=== PATIENT | male | born 1960 | race African-American/Black ===

== ENCOUNTER 2016-11-01 13:51 | Emergency (ER) | payer BC ==
[2016-11-01] MEDS ORDERED: ASPIRIN 81 MG TABLET, CHEWABLE PO ONE (14:17)
--- NOTE | 2016-11-01 14:17 | ER Document Report ---
ED Medical Screen (RME) - General Stated Complaint: SUICIDAL IDEATION Notes: patient experiencing chest pain that started last night previous h/o [place] previous stress test within the past 6-12 months, heart cath in Jul 2015. stents x4 Patient also complaining of suicidal ideations I have greeted and performed a rapid initial assessment of this patient. A comprehensive ED assessment and evaluation of the patient, analysis of test results and completion of the medical decision making process will be conducted by additional ED providers. TRAVEL OUTSIDE OF THE [place] IN LAST 30 DAYS: No - Related Data Allergies/Adverse Reactions: naproxen [Naproxen] Allergy (Mild, Verified 03/29/13 03:31) Hives Past Medical History - Past Medical History Cardiac Medical History: Reports: Hx Coronary Artery Disease, Hx Heart Attack - 2006, Hx Hypercholesterolemia, Hx Hypertension Renal/ Medical History: Reports: Hx Kidney Stones GI Medical History: Reports: Hx Gastroesophageal Reflux Disease, Hx Liver Failure - hepatitis C Psychiatric Medical History: Reports: Hx Depression Past Surgical History: Reports: Hx Cardiac Catheterization, Hx Cardiac Surgery - 2 stents placed. Denies: Hx Pacemaker - Immunizations Hx Diphtheria, Pertussis, Tetanus Vaccination: Yes
[2016-11-01 15:11] LABS: ABSOLUTE EOSINOPHILS # (AUTO) 0.1 10^3/uL (0.0-0.6); ABSOLUTE LYMPHOCYTES (AUTO) 3.2 10^3/uL (0.5-4.7); ABSOLUTE NEUT (AUTO) 2.9 10^3/uL (1.7-8.2); BASOPHILS % (AUTO) 0.7 % (0-2); HEMATOCRIT 42.9 % (37.9-51.0); HEMOGLOBIN 13.5 g/dL (13.5-17.0); HGB HCT DIFFERENCE -2.4; LYMPHOCYTES % (AUTO) 44.9 % (13-45); MEAN CORPUSCULAR HEMOGLOBIN 24.4 pg (27.0-33.4); MEAN CORPUSCULAR HGB CONC 31.5 g/dL (32.0-36.0); MEAN CORPUSCULAR VOLUME 78 fl (80-97); MONOCYTES % (AUTO) 13.3 % (3-13); RED BLOOD COUNT 5.54 10^6/uL (4.35-5.55); SEGMENTED NEUTROPHILS % (AUTO) 40.1 % (42-78); WHITE BLOOD COUNT 7.2 10^3/uL (4.0-10.5)
[2016-11-01 15:27] LABS: ALANINE AMINOTRANSFERASE 94 U/L (21-72); ALBUMIN 5.1 g/dL (3.5-5.0); ALKALINE PHOSPHATASE 76 U/L (38-126); ANION GAP 16 (5-19); ASPARTATE AMINO TRANSFERASE 85 U/L (17-59); BILIRUBIN,TOTAL 1.1 mg/dL (0.2-1.3); BLOOD UREA NITROGEN 12 mg/dL (7-20); CALCIUM 9.9 mg/dL (8.4-10.2); CARBON DIOXIDE 25 mmol/L (22-30); CHLORIDE 100 mmol/L (98-107); CREATINE KINASE 984 U/L (55-170); CREATININE RESULT 1.01 mg/dL (0.52-1.25); GLUCOSE 81 mg/dL (75-110); POTASSIUM 4.1 mmol/L (3.6-5.0); SODIUM 140.9 mmol/L (137-145); TOTAL PROTEIN 8.5 g/dL (6.3-8.2)
[2016-11-01 15:30] LABS: ALCOHOL < 10 mg/dL (NONE DETECTED)
[2016-11-01 15:38] LABS: CREATINE KINASE MB 5.24 ng/mL (<4.55); TROPONIN I 0.021 ng/mL
[2016-11-01] MEDS ORDERED: MAG HYDROX/AL HYDROX/SIMETH SUSP 30 ML UDCUP PO ONE (15:48)
[2016-11-01] MEDS ORDERED: METOCLOPRAMIDE HCL ORAL SOLN 10 MG/10 ML UDCUP PO ONE (15:48)
[2016-11-01] MEDS ORDERED: LIDOCAINE 2% VISCOUS SOLN 20 ML UDCUP PO ONE (15:48)
--- NOTE | 2016-11-01 16:04 | EKG REPORT ---
SEVERITY:- BORDERLINE ECG - SINUS RHYTHM BORDERLINE RIGHT AXIS DEVIATION BORDERLINE REPOL ABNORMALITY, DIFFUSE LEADS : Confirmed by: Lissett Brunner 01-Nov-2016 16:03:35
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
--- NOTE | 2016-11-01 16:33 | ER Document Report ---
ED General - General Chief Complaint: Chest Pain Stated Complaint: SUICIDAL IDEATION TRAVEL OUTSIDE OF THE [place] IN LAST 30 DAYS: No - HPI Patient complains to provider of: suicidal ideation chest pain Notes: Patient coming in for evaluation chest pain suicidal ideation. Patient states chest pain ongoing for last 24 hours. Patient states pacesetters chest status her me touch his chest. Patient states had a recent heart attack proximal to 6 months ago with 4 stents placed in. Patient states he continues to drink alcohol and do cocaine. Patient states drink alcohol prior to coming in also did cocaine night prior to arrival. Patient also states he is having suicidal pulse. Patient states suicidal thoughts for the last 48 hours. Patient does deny plan denies any access weapons. Patient was referred by the mobile crisis workers to the hospital for further evaluation - Related Data Allergies/Adverse Reactions: naproxen [Naproxen] Allergy (Mild, Verified 11/01/16 14:14) Hives Past Medical History - Social History Smoking Status: Never Smoker Chew tobacco use (# tins/day): No Frequency of alcohol use: None Drug Abuse: None Family History: Reviewed & Not Pertinent Patient has suicidal ideation: Yes Patient has homicidal ideation: No - Past Medical History Cardiac Medical History: Reports: Hx Coronary Artery Disease, Hx Heart Attack - 2006, Hx Hypercholesterolemia, Hx Hypertension Renal/ Medical History: Reports: Hx Kidney Stones. Denies: Hx Peritoneal Dialysis GI Medical History: Reports: Hx Gastroesophageal Reflux Disease, Hx Liver Failure - hepatitis C Psychiatric Medical History: Reports: Hx Depression Past Surgical History: Reports: Hx Cardiac Catheterization, Hx Cardiac Surgery - 2 stents placed. Denies: Hx Pacemaker - Immunizations Hx Diphtheria, Pertussis, Tetanus Vaccination: Yes Review of Systems - Review of Systems Constitutional: No symptoms reported EENT: No symptoms reported Cardiovascular: Chest pain Respiratory: No symptoms reported Gastrointestinal: No symptoms reported Genitourinary: No symptoms reported Male Genitourinary: No symptoms reported Musculoskeletal: No symptoms reported Skin: No symptoms reported Hematologic/Lymphatic: No symptoms reported Neurological/Psychological: Suicidal ideation -: Yes All other systems reviewed and negative Physical Exam - Vital signs Vitals: Temp Pulse Resp BP Pulse Ox 97.5 F 77 22 H 119/74 97 11/01/16 14:14 11/01/16 14:14 11/01/16 14:14 11/01/16 14:14 11/01/16 14:14 Interpretation: Normal - General General appearance: Appears well, Alert - HEENT Head: Normocephalic, Atraumatic Eyes: Normal Pupils: PERRL - Respiratory Respiratory status: No respiratory distress Chest status: Nontender Breath sounds: Normal Chest palpation: Normal - Cardiovascular Rhythm: Regular Heart sounds: Normal auscultation Murmur: No - Abdominal Inspection: Normal Distension: No distension Bowel sounds: Normal Tenderness: Nontender Organomegaly: No organomegaly - Back Back: Normal, Nontender - Extremities General upper extremity: Normal inspection, Nontender, Normal color, Normal ROM , Normal temperature General lower extremity: Normal inspection, Nontender, Normal color, Normal ROM , Normal temperature, Normal weight bearing. No: Beatriz's sign - Neurological Neuro grossly intact: Yes Cognition: Normal Orientation: AAOx4 [place] Coma Scale Eye Opening: Spontaneous [place] Coma Scale Verbal: Oriented [place] Coma Scale Motor: Obeys Commands Magnus Coma Scale Total: 15 Speech: Normal Motor strength normal: LUE, RUE, LLE, RLE Sensory: Normal - Psychological Associated symptoms: Normal affect, Normal mood - Skin Skin Temperature: Warm Skin Moisture: Dry Skin Color: Normal Course - Re-evaluation Re-evalutation: 11/01/16 22:23 Patient coming in evaluated for chest pain. Chest pain ongoing for 24 hours with no EKG or troponin findings. Patient was encouraged to stop drinking alcohol and doing cocaine especially with his cardiac history. Patient was evaluated by mental health team. At this time filled patient safe to be discharged home follow-up with [facility]. - Vital Signs Vital signs: Temp Pulse Resp BP Pulse Ox 97.5 F 64 16 106/63 100 11/01/16 18:11 11/01/16 18:11 11/01/16 18:11 11/01/16 18:11 11/01/16 18:11 - Laboratory Result Diagrams: 11/01/16 14:55 11/01/16 14:55 Laboratory results interpreted by me: 11/01/16 11/01/16 11/01/16 14:55 14:55 14:55 MCV 78 L MCH 24.4 L MCHC 31.5 L RDW 18.0 H Seg Neutrophils % 40.1 L Monocytes % 13.3 H AST 85 H ALT 94 H Creatine Kinase 984 H CK-MB (CK-2) 5.24 H Total Protein 8.5 H Albumin 5.1 H Salicylates < 1.0 L Acetaminophen < 10 L Discharge - Discharge Clinical Impression: Chest pain of unknown etiology, ETOH abuse, Cocaine abuse Depression Qualifiers: Depression Type: unspecified Qualified Code(s): F32.9 - Major depressive disorder, single episode, unspecified Condition: Fair Disposition: HOME, SELF-CARE Instructions: Chest Wall Pain ([facility]), Chest Pain of Unclear Cause ([facility]), Cocaine Abuse ([facility]), Acute Alcohol Intoxication ([facility]) Additional Instructions: Please follow-up with [facility]. Return to the ER if symptoms worsen
[2016-11-01 18:12] VITALS: BP 106/63
== END 2016-11-01 18:15 | disposition home or self-care (01) ==
LOC: ER 13:51
DX: R07.9 Chest pain, unspecified (principal); F10.10 Alcohol abuse, uncomplicated; F14.10 Cocaine abuse, uncomplicated; F32.9 Major depressive disorder, single episode, unspecified; R45.851 Suicidal ideations; F43.10 Post-traumatic stress disorder, unspecified; I25.10 Atherosclerotic heart disease of native coronary artery without angina pectoris; E78.00 Pure hypercholesterolemia, unspecified; I10 Essential (primary) hypertension; I25.2 Old myocardial infarction; Z87.442 Personal history of urinary calculi; Z59.0 Homelessness
CPT/HCPCS: 36415; 71010; 80053; 80307; 82550; 82553; 84484; 85025; 93005; 93010; 99285

== ENCOUNTER → 2017-02-05 | Outpatient (CLI) | payer BC ==
[2017-02-05 16:17] LABS: APPEARANCE,URINE CLEAR; BILIRUBIN,URINE NEGATIVE (NEGATIVE); GLUCOSE, URINE NEGATIVE (NEGATIVE); KETONES,URINE NEGATIVE (NEGATIVE); LEUKOCYTE ESTERASE,URINE NEGATIVE (NEGATIVE); NITRITE,URINE NEGATIVE (NEGATIVE); PROTEIN,URINE NEGATIVE (NEGATIVE); URINE SPECIFIC GRAVITY 1.001; UROBILINOGEN,URINE NEGATIVE mg/dL (<2.0)
[2017-02-05 17:12] LABS: ABSOLUTE EOSINOPHILS # (AUTO) 0.1 10^3/uL (0.0-0.6); ABSOLUTE MONOCYTES (AUTO) 0.6 10^3/uL (0.1-1.4); ABSOLUTE NEUT (AUTO) 1.4 10^3/uL (1.7-8.2); BASOPHILS % (AUTO) 0.7 % (0-2); EOSINOPHILS % (AUTO) 1.7 % (0-6); HEMATOCRIT 38.5 % (37.9-51.0); HEMOGLOBIN 12.1 g/dL (13.5-17.0); HGB HCT DIFFERENCE -2.2; LYMPHOCYTES % (AUTO) 49.2 % (13-45); MEAN CORPUSCULAR HEMOGLOBIN 24.5 pg (27.0-33.4); MEAN CORPUSCULAR HGB CONC 31.5 g/dL (32.0-36.0); MEAN CORPUSCULAR VOLUME 78 fl (80-97); MONOCYTES % (AUTO) 14.6 % (3-13); RED BLOOD COUNT 4.95 10^6/uL (4.35-5.55); RED CELL DISTRIBUTION WIDTH 18.4 % (11.5-14.0); SEGMENTED NEUTROPHILS % (AUTO) 33.8 % (42-78)
[2017-02-05 17:43] LABS: ALANINE AMINOTRANSFERASE 62 U/L (21-72); ALBUMIN 4.2 g/dL (3.5-5.0); ALKALINE PHOSPHATASE 55 U/L (38-126); ANION GAP 12 (5-19); ASPARTATE AMINO TRANSFERASE 45 U/L (17-59); BILIRUBIN,DIRECT 0.3 mg/dL (0.0-0.4); BILIRUBIN,TOTAL 0.4 mg/dL (0.2-1.3); BLOOD UREA NITROGEN 12 mg/dL (7-20); CALCIUM 9.2 mg/dL (8.4-10.2); CARBON DIOXIDE 24 mmol/L (22-30); CHLORIDE 106 mmol/L (98-107); CREATININE RESULT 0.97 mg/dL (0.52-1.25); GLUCOSE 90 mg/dL (75-110); POTASSIUM 4.2 mmol/L (3.6-5.0); SODIUM 142.3 mmol/L (137-145); TOTAL PROTEIN 7.3 g/dL (6.3-8.2)
[2017-02-05 17:49] LABS: CHLAM PCR NOT DETECTED (NOT DETECT)
[2017-02-05 18:25] LABS: ADD HIVPANEL? YES
[2017-02-07 12:39] LABS: ABSOLUTE CD 4 HELPER 658 /uL (359-1519); CD BASOPHILS 1 % (.); CD EOSINOPHILS 2 % (.); CD MONOCYTES 13 % (.); CD NEUTROPHILS 35 % (.); HEMATOCRIT . 38.7 % (37.5-51.0); HEMOGLOBIN 11.8 g/dL (12.6-17.7); IMMATURE GRANULOCYTES 0 % (.); MCH 24.4 pg (26.6-33.0); MCHC 30.5 g/dL (31.5-35.7); MCV 80 fL (79-97); NEUTROPHILS(ABSOLUTE) 1.4 x10E3/uL (1.4-7.0); PLATELETS 225 x10E3/uL (150-379); RBC 4.84 x10E6/uL (4.14-5.80); RDW 18.8 % (12.3-15.4); WBC 3.9 x10E3/uL (3.4-10.8)
== END ==
LOC: OD 15:18
PROVIDERS: ATTEND Nurse Practitioner
DX: B20 Human immunodeficiency virus [HIV] disease (principal); Z11.3 Encounter for screening for infections with a predominantly sexual mode of transmission; Z79.899 Other long term (current) drug therapy
CPT/HCPCS: 36415; 80053; 81001; 85025; 86360; 86592; 86701; 86702; 87491; 87591

== ENCOUNTER → 2017-05-30 | Outpatient (CLI) | payer BC ==
[2017-05-30 11:12] LABS: ABSOLUTE EOSINOPHILS # (AUTO) 0.1 10^3/uL (0.0-0.6); ABSOLUTE LYMPHOCYTES (AUTO) 2.2 10^3/uL (0.5-4.7); ABSOLUTE MONOCYTES (AUTO) 0.7 10^3/uL (0.1-1.4); ABSOLUTE NEUT (AUTO) 1.1 10^3/uL (1.7-8.2); BASOPHILS % (AUTO) 0.4 % (0-2); EOSINOPHILS % (AUTO) 1.8 % (0-6); HEMOGLOBIN 13.1 g/dL (13.5-17.0); HGB HCT DIFFERENCE -1.7; LYMPHOCYTES % (AUTO) 53.2 % (13-45); MEAN CORPUSCULAR VOLUME 78 fl (80-97); MONOCYTES % (AUTO) 16.4 % (3-13); RED BLOOD COUNT 5.26 10^6/uL (4.35-5.55); RED CELL DISTRIBUTION WIDTH 17.2 % (11.5-14.0); SEGMENTED NEUTROPHILS % (AUTO) 28.2 % (42-78); WHITE BLOOD COUNT 4.1 10^3/uL (4.0-10.5)
[2017-05-30 11:21] LABS: APPEARANCE,URINE CLEAR; BILIRUBIN,URINE NEGATIVE (NEGATIVE); GLUCOSE, URINE NEGATIVE (NEGATIVE); KETONES,URINE NEGATIVE (NEGATIVE); LEUKOCYTE ESTERASE,URINE NEGATIVE (NEGATIVE); NITRITE,URINE NEGATIVE (NEGATIVE); PROTEIN,URINE NEGATIVE (NEGATIVE); URINE SPECIFIC GRAVITY 1.019; UROBILINOGEN,URINE NEGATIVE mg/dL (<2.0)
[2017-05-30 11:42] LABS: ALANINE AMINOTRANSFERASE 72 U/L (21-72); ALBUMIN 4.3 g/dL (3.5-5.0); ALKALINE PHOSPHATASE 55 U/L (38-126); ANION GAP 12 (5-19); ASPARTATE AMINO TRANSFERASE 56 U/L (17-59); BILIRUBIN,DIRECT 0.4 mg/dL (0.0-0.4); BILIRUBIN,TOTAL 0.6 mg/dL (0.2-1.3); BLOOD UREA NITROGEN 15 mg/dL (7-20); CALCIUM 9.5 mg/dL (8.4-10.2); CARBON DIOXIDE 26 mmol/L (22-30); CHLORIDE 104 mmol/L (98-107); CHOLESTEROL 150.24 mg/dL (0-200); CREATININE RESULT 1.06 mg/dL (0.52-1.25); Direct HDL 67 mg/dL (>40); GLUCOSE 92 mg/dL (75-110); POTASSIUM 4.7 mmol/L (3.6-5.0); TOTAL PROTEIN 7.3 g/dL (6.3-8.2); TRIGLYCERIDES 81 mg/dL (<150)
[2017-05-30 11:53] LABS: DIRECT LDL 64 mg/dL (<100)
[2017-05-30 12:47] LABS: CHLAM PCR NOT DETECTED (NOT DETECT)
[2017-06-02 07:26] LABS: HIV-1 RNA LOG10.. 2.477 (.); HIV-1 RNA PCR QUANT 300 copies/mL (.)
[2017-06-02 15:37] LABS: ABSOLUTE CD 4 HELPER 786 /uL (359-1519); CD BASOPHILS 1 % (.); CD EOSINOPHILS 2 % (.); CD MONOCYTES 17 % (.); CD NEUTROPHILS 29 % (.); HEMATOCRIT . 39.5 % (37.5-51.0); HEMOGLOBIN 12.9 g/dL (12.6-17.7); IMMATURE GRANULOCYTES 0 % (.); MCH 24.7 pg (26.6-33.0); MCHC 32.7 g/dL (31.5-35.7); MCV 76 fL (79-97); NEUTROPHILS(ABSOLUTE) 1.2 x10E3/uL (1.4-7.0); PLATELETS 197 x10E3/uL (150-379); RBC 5.22 x10E6/uL (4.14-5.80); RDW 17.5 % (12.3-15.4)
== END ==
LOC: OD 09:23
PROVIDERS: ATTEND Nurse Practitioner
DX: B20 Human immunodeficiency virus [HIV] disease (principal); Z11.3 Encounter for screening for infections with a predominantly sexual mode of transmission; Z79.899 Other long term (current) drug therapy
CPT/HCPCS: 36415; 80053; 80061; 81001; 85025; 86361; 86592; 87491; 87536; 87591

== ENCOUNTER → 2017-09-03 | Outpatient (CLI) | payer BC ==
[2017-09-03 17:21] LABS: ABSOLUTE EOSINOPHILS # (AUTO) 0.1 10^3/uL (0.0-0.6); ABSOLUTE LYMPHOCYTES (AUTO) 2.5 10^3/uL (0.5-4.7); ABSOLUTE MONOCYTES (AUTO) 0.7 10^3/uL (0.1-1.4); ABSOLUTE NEUT (AUTO) 1.3 10^3/uL (1.7-8.2); BASOPHILS % (AUTO) 0.7 % (0-2); EOSINOPHILS % (AUTO) 1.3 % (0-6); HEMATOCRIT 41.5 % (37.9-51.0); HEMOGLOBIN 13.2 g/dL (13.5-17.0); HGB HCT DIFFERENCE -1.9; LYMPHOCYTES % (AUTO) 54.5 % (13-45); MEAN CORPUSCULAR HEMOGLOBIN 24.7 pg (27.0-33.4); MEAN CORPUSCULAR HGB CONC 31.9 g/dL (32.0-36.0); MEAN CORPUSCULAR VOLUME 78 fl (80-97); MONOCYTES % (AUTO) 15.3 % (3-13); RED BLOOD COUNT 5.35 10^6/uL (4.35-5.55); RED CELL DISTRIBUTION WIDTH 17.3 % (11.5-14.0); SEGMENTED NEUTROPHILS % (AUTO) 28.2 % (42-78); WHITE BLOOD COUNT 4.5 10^3/uL (4.0-10.5)
[2017-09-03 17:44] LABS: ALANINE AMINOTRANSFERASE 70 U/L (21-72); ALBUMIN 4.2 g/dL (3.5-5.0); ALKALINE PHOSPHATASE 63 U/L (38-126); ANION GAP 15 (5-19); ASPARTATE AMINO TRANSFERASE 50 U/L (17-59); BILIRUBIN,DIRECT 0.3 mg/dL (0.0-0.4); BILIRUBIN,TOTAL 0.3 mg/dL (0.2-1.3); BLOOD UREA NITROGEN 16 mg/dL (7-20); CALCIUM 8.8 mg/dL (8.4-10.2); CARBON DIOXIDE 22 mmol/L (22-30); CHLORIDE 106 mmol/L (98-107); CREATININE RESULT 1.09 mg/dL (0.52-1.25); GLUCOSE 81 mg/dL (75-110); POTASSIUM 4.1 mmol/L (3.6-5.0); SODIUM 142.5 mmol/L (137-145)
[2017-09-05 11:39] LABS: ABSOLUTE CD 4 HELPER 935 /uL (359-1519); CD BASOPHILS 0 % (Not Estab.); CD EOSINOPHILS 1 % (Not Estab.); CD MONOCYTES 14 % (Not Estab.); CD NEUTROPHILS 29 % (Not Estab.); HEMATOCRIT . 40.4 % (37.5-51.0); IMMATURE GRANULOCYTES 0 % (Not Estab.); LYMPHS(ABSOLUTE) 2.5 x10E3/uL (0.7-3.1); MCH 24.4 pg (26.6-33.0); MCHC 31.9 g/dL (31.5-35.7); MCV 76 fL (79-97); NEUTROPHILS(ABSOLUTE) 1.3 x10E3/uL (1.4-7.0); PLATELETS 208 x10E3/uL (150-379); RBC 5.29 x10E6/uL (4.14-5.80); RDW 18.3 % (12.3-15.4); WBC 4.5 x10E3/uL (3.4-10.8)
[2017-09-06 11:31] LABS: HEMOGLOBIN 12.9 g/dL (13.0-17.7)
[2017-09-06 11:35] LABS: HIV-1 RNA PCR QUANT <20 copies/mL (.)
== END ==
LOC: OD 15:19
PROVIDERS: ATTEND Nurse Practitioner
DX: B20 Human immunodeficiency virus [HIV] disease (principal)
CPT/HCPCS: 36415; 80053; 85025; 86361; 87536

== ENCOUNTER 2018-04-30 12:57 | Emergency (ER) | payer BC ==
[2018-04-30] MEDS ORDERED: ASPIRIN 81 MG TABLET, CHEWABLE PO ONE (13:28)
[2018-04-30] MEDS ORDERED: CLOPIDOGREL BISULFATE 300 MG TABLET PO ONE (13:36)
[2018-04-30 13:38] LABS: ABSOLUTE LYMPHOCYTES (AUTO) 2.1 10^3/uL (0.5-4.7); ABSOLUTE MONOCYTES (AUTO) 0.7 10^3/uL (0.1-1.4); ABSOLUTE NEUT (AUTO) 6.7 10^3/uL (1.7-8.2); BASOPHILS % (AUTO) 0.2 % (0-2); HEMATOCRIT 39.5 % (37.9-51.0); HEMOGLOBIN 12.5 g/dL (13.5-17.0); LYMPHOCYTES % (AUTO) 21.9 % (13-45); MEAN CORPUSCULAR HEMOGLOBIN 24.6 pg (27.0-33.4); MEAN CORPUSCULAR HGB CONC 31.6 g/dL (32.0-36.0); MEAN CORPUSCULAR VOLUME 78 fl (80-97); PLATELET COUNT 187 10^3/uL (150-450); RED BLOOD COUNT 5.06 10^6/uL (4.35-5.55); RED CELL DISTRIBUTION WIDTH 17.2 % (11.5-14.0); SEGMENTED NEUTROPHILS % (AUTO) 70.9 % (42-78); TOTAL CELLS COUNTED % (AUTO) 100 %; WHITE BLOOD COUNT 9.5 10^3/uL (4.0-10.5)
--- NOTE | 2018-04-30 13:52 | RADIOLOGY REPORT (SQ) ---
EXAM DESCRIPTION: CHEST SINGLE VIEW COMPLETED DATE/TIME: 04/30/2018 1:37 pm REASON FOR STUDY: ER 11 CHEST PAIN COMPARISON: AP chest 11/01/2016, 08/24/2015 EXAM PARAMETERS: NUMBER OF VIEWS: One view. TECHNIQUE: Single frontal radiographic view of the chest acquired. RADIATION DOSE: NA LIMITATIONS: Lordotic positioning, EKG leads over the chest FINDINGS: LUNGS AND PLEURA: No opacities, masses or pneumothorax. No pleural effusion. MEDIASTINUM AND HILAR STRUCTURES: No masses. Contour normal. HEART AND VASCULAR STRUCTURES: Heart normal in size. Normal vasculature. BONES: No acute findings. HARDWARE: None in the chest. OTHER: No other significant finding. IMPRESSION: NO ACUTE RADIOGRAPHIC FINDING IN THE CHEST. TECHNICAL DOCUMENTATION: JOB ID: [id number] [employer]- All Rights Reserved Reading location - IP/workstation name: [email or web address]
[2018-04-30] MEDS ORDERED: CALCIUM GLUCONATE 1000 MG/10 ML INJ IV ONE (13:54)
[2018-04-30] MEDS ORDERED: HEPARIN SOD (PORCINE) 1,000 UNIT/ML 10 ML VIAL IV ONE (14:02)
[2018-04-30] MEDS ORDERED: HEPARIN SODIUM,PORCINE/D5W 25,000 UNIT/250 ML RTUINJ IV PRN (14:02)
--- NOTE | 2018-04-30 14:25 | ER Document Report ---
ED Cardiac - General Chief Complaint: Chest Pain Stated Complaint: CHEST PAIN Time Seen by Provider: 04/30/18 13:23 Mode of Arrival: Wheelchair Information source: Patient TRAVEL OUTSIDE OF THE [place] IN LAST 30 DAYS: No - HPI Patient complains to provider of: Other - This 58-year-old man presented for evaluation of intermittent chest pain as well as nausea and diaphoresis which started this morning upon waking. He felt like it was similar to his previous heart attack at which time he underwent intervention with 4 stents being placed as recently of January of this year. He notes that he is felt nauseous during this time, he did not have any episodes of emesis, he has felt some palpitations during this time, he did take his normal medications he notes that he did drink a large amount of beer last night and is concerned this may have been the cause of the onset. He denies any loss of consciousness does endorse lightheadedness and general fatigue. Nothing seemed to make it any better it seems to be getting somewhat worse. - Related Data Allergies/Adverse Reactions: naproxen [Naproxen] Allergy (Mild, Verified 11/01/16 14:14) Hives Past Medical History - Social History Smoking Status: Former Smoker Family History: Reviewed & Not Pertinent - Medical History Medical History: Other Notes: HIV-positive Coronary artery disease [place] - Past Medical History Cardiac Medical History: Reports: Hx Coronary Artery Disease, Hx Heart Attack - 2006, Hx Hypercholesterolemia, Hx Hypertension Renal/ Medical History: Reports: Hx Kidney Stones. Denies: Hx Peritoneal Dialysis GI Medical History: Reports: Hx Gastroesophageal Reflux Disease, Hx Liver Failure - hepatitis C Psychiatric Medical History: Reports: Hx Depression Past Surgical History: Reports: Hx Cardiac Catheterization, Hx Cardiac Surgery - 2 stents placed. Denies: Hx Pacemaker - Immunizations Hx Diphtheria, Pertussis, Tetanus Vaccination: Yes Review of Systems - Review of Systems Constitutional: Malaise EENT: No symptoms reported Cardiovascular: See HPI Respiratory: No symptoms reported Gastrointestinal: No symptoms reported Genitourinary: No symptoms reported Male Genitourinary: No symptoms reported Musculoskeletal: No symptoms reported Skin: No symptoms reported Hematologic/Lymphatic: No symptoms reported Neurological/Psychological: No symptoms reported Physical Exam - Vital signs Vitals: Resp Pulse Ox 24 H 97 04/30/18 13:19 04/30/18 13:19 - General General appearance: Other - Appears ill In distress: Moderate - HEENT Head: Normocephalic Eyes: Normal Conjunctiva: Normal - Respiratory Respiratory status: No respiratory distress, Tachypnea Chest status: Nontender Breath sounds: Normal, Rhonchi - Cardiovascular Rhythm: Irregularly irregular, Tachycardia Friction rub: No Kourtney's crunch: No Pulses: Normal: Brachial, Radial, Carotid, Femoral - Abdominal Inspection: Normal Distension: No distension Bowel sounds: Normal - Rectal Stool: Heme negative Hemorrhoids: None Prostate: Normal - Back Back: Normal - Extremities General upper extremity: Normal inspection General lower extremity: Normal inspection - Neurological Neuro grossly intact: Yes Course - Re-evaluation Re-evalutation: 04/30/18 15:06 This 58-year-old man presented for evaluation of diaphoresis nausea and chest pain. He has been feeling unwell, he was brought back emergently from triage as he had an EKG which was concerning for a possible STEMI. On initial evaluation this is an ill-appearing man, he was diaphoretic weak interactive and appropriate. He was subsequently transitioned to bed, placed on monitor repeat EKG was obtained. The initial EKG demonstrated atrial fibrillation with a variable bundle branch block with sinus beats and pronounced ST segment depressions through leads V4, V5, V6. Consideration of a STEMI was initiated, streptokinase was brought emergently to the bedside, repeat EKG demonstrated persistent bundle branch block with atrial fibrillation at a tachycardic rate potentially representing a rate related bundle. Given the concern of this patient having had a previous heart attack which had similar manifestations made determination to consult cardiology, spoke with Dr. Peter Ortiz of [facility]. Faxed EKGs to Dr. Ortiz who reviewed them in real-time, during this time the patient was tachycardic with normal blood pressures however he continued to be appropriate. Given that he continues to be appropriate deferred intervention emergently at this time. After discussing with Dr. Hurt appropriate interventions determination was made for this patient to be transferred to [facility] with a heparin drip in place but to defer lytics at this time as he did not meet STEMI criteria via the scar [place] criteria. The patient was placed on monitor, heparin drip was initiated, a low-level troponin was identified. [facility] presented for transported this man, during this time he was stable from a blood pressure standpoint that he did persistently have tachycardia. A bedside echo did demonstrate that this patient had preserved ejection fraction approximately 25-30% as was previously identified on an echo. This patient also had an IVC which was relatively plethoric as such deferred administration of IV fluids as it may have represented fluid overload as he had recently consumed large amount of beer. The patient remained pleasant at the time of transport, he was transported [facility] under the care of Dr. Ortiz. - Vital Signs Vital signs: Temp Pulse Resp BP Pulse Ox 32 H 92/74 L 98 04/30/18 15:00 04/30/18 15:00 04/30/18 15:00 - Laboratory Result Diagrams: 04/30/18 13:15 04/30/18 14:02 Laboratory results interpreted by me: 04/30/18 04/30/18 04/30/18 13:15 14:02 14:02 Hgb 12.5 L MCV 78 L MCH 24.6 L MCHC 31.6 L RDW 17.2 H Carbon Dioxide 12 L Anion Gap 25 H Glucose 132 H AST 203 H ALT 153 H Creatine Kinase 1236 H CK-MB (CK-2) 8.82 H Critical Care Note - Critical Care Note Total time excluding time spent on procedures (mins): 45 Comments: This 58-year-old male presented in in extremis, he was in risk of clinical decompensation, he had A. fib with RVR with concerning EKG changes. Given that he was in distress medial obtain serial EKGs, consult to fraud analyst , deferred lytics at this time due to concern for possible decompensation made plans for patient transfer. Patient to be transferred [facility] for possible catheterization. Discharge - Discharge Clinical Impression: Chest pain Qualifiers: Chest pain type: chest pain due to myocardial ischemia Condition: Fair Disposition: [facility] Referrals: MANISH MYERS FNP [Primary Care Provider] - Follow up as needed
[2018-04-30 14:42] LABS: ALANINE AMINOTRANSFERASE 153 U/L (21-72); ALBUMIN 4.5 g/dL (3.5-5.0); ALKALINE PHOSPHATASE 51 U/L (38-126); ASPARTATE AMINO TRANSFERASE 203 U/L (17-59); BILIRUBIN,DIRECT 0.4 mg/dL (0.0-0.4); BILIRUBIN,TOTAL 0.4 mg/dL (0.2-1.3); BLOOD UREA NITROGEN 18 mg/dL (7-20); CALCIUM 9.5 mg/dL (8.4-10.2); CHLORIDE 104 mmol/L (98-107); CREATINE KINASE 1236 U/L (55-170); GLUCOSE 132 mg/dL (75-110); POTASSIUM 4.9 mmol/L (3.6-5.0); TOTAL PROTEIN 8.1 g/dL (6.3-8.2)
[2018-04-30 14:48] LABS: CARBON DIOXIDE 12 mmol/L (22-30); SODIUM 140.5 mmol/L (137-145)
[2018-04-30 14:52] LABS: CREATINE KINASE MB 8.82 ng/mL (<4.55)
[2018-04-30 14:53] LABS: ANION GAP 25 (5-19)
[2018-04-30 14:56] LABS: TROPONIN I 0.217 ng/mL
[2018-04-30 15:08] VITALS: BP 121/95
[2018-04-30] MEDS ORDERED: CLOPIDOGREL BISULFATE 300 MG TABLET ONE (19:48)
[2018-04-30] MEDS ORDERED: ASPIRIN 81 MG TABLET, CHEWABLE ONE (19:48)
--- NOTE | 2018-04-30 22:39 | EKG REPORT ---
SEVERITY:- ABNORMAL ECG - ATRIAL FIBRILLATION VENTRICULAR BIGEMINY NONSPECIFIC IVCD WITH LAD, CAN NOT R/O V PACED BEATS : Confirmed by: Lissett Brunner 30-Apr-2018 22:38:27
--- NOTE | 2018-04-30 22:39 | EKG REPORT ---
SEVERITY:- ABNORMAL ECG - ATRIAL FIBRILLATION, V-RATE 72-132 RUN OF VENTRICULAR PREMATURE COMPLEXES RIGHT BUNDLE BRANCH BLOCK PROBABLE INFERIOR INFARCT, AGE INDETERMINATE CONSIDER V PACED BEATS : Confirmed by: Lissett Brunner 30-Apr-2018 22:39:25
== END 2018-04-30 15:10 | disposition short-term general hospital (02) ==
LOC: ER 12:57
DX: I25.9 Chronic ischemic heart disease, unspecified (principal); I48.91 Unspecified atrial fibrillation; I25.10 Atherosclerotic heart disease of native coronary artery without angina pectoris; I10 Essential (primary) hypertension; I45.4 Nonspecific intraventricular block; R00.0 Tachycardia, unspecified; R11.0 Nausea; R61 Generalized hyperhidrosis; R07.9 Chest pain, unspecified; R00.2 Palpitations; R42 Dizziness and giddiness; R53.1 Weakness; R53.81 Other malaise; R53.83 Other fatigue; I25.2 Old myocardial infarction; Z95.5 Presence of coronary angioplasty implant and graft; Z79.899 Other long term (current) drug therapy; Z88.8 Allergy status to other drugs, medicaments and biological substances; Z87.891 Personal history of nicotine dependence; R06.82 Tachypnea, not elsewhere classified
CPT/HCPCS: 93005; 99291; 96365; 36415; 82553; 82550; 85025; 85730; 82272; 80053; 84484; 71045; 93010; J3490; J1644 ×2

== ENCOUNTER → 2018-09-07 | Outpatient (CLI) | payer MEDICAID ==
[2018-09-07 15:19] LABS: ABSOLUTE LYMPHOCYTES (AUTO) 1.4 10^3/uL (0.5-4.7); ABSOLUTE MONOCYTES (AUTO) 0.7 10^3/uL (0.1-1.4); ABSOLUTE NEUT (AUTO) 1.9 10^3/uL (1.7-8.2); BASOPHILS % (AUTO) 0.6 % (0-2); EOSINOPHILS % (AUTO) 0.9 % (0-6); HEMATOCRIT 42.5 % (37.9-51.0); HEMOGLOBIN 13.7 g/dL (13.5-17.0); LYMPHOCYTES % (AUTO) 34.1 % (13-45); MEAN CORPUSCULAR HEMOGLOBIN 24.5 pg (27.0-33.4); MEAN CORPUSCULAR HGB CONC 32.3 g/dL (32.0-36.0); MEAN CORPUSCULAR VOLUME 76 fl (80-97); MONOCYTES % (AUTO) 17.9 % (3-13); PLATELET COUNT 163 10^3/uL (150-450); RED CELL DISTRIBUTION WIDTH 17.2 % (11.5-14.0); SEGMENTED NEUTROPHILS % (AUTO) 46.5 % (42-78); TOTAL CELLS COUNTED % (AUTO) 100 %; WHITE BLOOD COUNT 4.1 10^3/uL (4.0-10.5)
[2018-09-07 15:22] LABS: APPEARANCE,URINE CLEAR; BILIRUBIN,URINE NEGATIVE (NEGATIVE); COLOR,URINE YELLOW; GLUCOSE, URINE NEGATIVE (NEGATIVE); KETONES,URINE NEGATIVE (NEGATIVE); LEUKOCYTE ESTERASE,URINE NEGATIVE (NEGATIVE); NITRITE,URINE NEGATIVE (NEGATIVE); PROTEIN,URINE NEGATIVE (NEGATIVE); URINE SPECIFIC GRAVITY 1.026
[2018-09-07 15:46] LABS: ALANINE AMINOTRANSFERASE 142 U/L (21-72); ALBUMIN 4.3 g/dL (3.5-5.0); ALKALINE PHOSPHATASE 46 U/L (38-126); ANION GAP 12 (5-19); ASPARTATE AMINO TRANSFERASE 116 U/L (17-59); BILIRUBIN,DIRECT 0.2 mg/dL (0.0-0.4); BILIRUBIN,TOTAL 0.8 mg/dL (0.2-1.3); BLOOD UREA NITROGEN 21 mg/dL (7-20); CALCIUM 9.8 mg/dL (8.4-10.2); CARBON DIOXIDE 30 mmol/L (22-30); CHLORIDE 101 mmol/L (98-107); CHOLESTEROL 151.21 mg/dL (0-200); GLUCOSE 73 mg/dL (75-110); POTASSIUM 4.4 mmol/L (3.6-5.0); SODIUM 142.7 mmol/L (137-145); TOTAL PROTEIN 7.7 g/dL (6.3-8.2); TRIGLYCERIDES 158 mg/dL (<150)
[2018-09-07 15:56] LABS: DIRECT LDL 74 mg/dL (<100)
[2018-09-07 16:07] LABS: VLDL CHOLESTEROL 31.6 mg/dL (10-31)
[2018-09-09 13:37] LABS: % CD 4 POS LYMPH 34.9 % (30.8-58.5); ABSOLUTE CD 4 HELPER 489 /uL (359-1519); CD BASOPHILS 0 % (Not Estab.); CD EOSINOPHILS 1 % (Not Estab.); CD MONOCYTES 18 % (Not Estab.); CD NEUTROPHILS 46 % (Not Estab.); EOSINOPHILS (ABSOLUTE) 0.1 x10E3/uL (0.0-0.4); HEMOGLOBIN 13.6 g/dL (13.0-17.7); IMMATURE GRANULOCYTES 0 % (Not Estab.); LYMPHS(ABSOLUTE) 1.4 x10E3/uL (0.7-3.1); MCH 24.3 pg (26.6-33.0); MCHC 31.9 g/dL (31.5-35.7); MCV 76 fL (79-97); MONOCYTES(ABSOLUTE) 0.7 x10E3/uL (0.1-0.9); NEUTROPHILS(ABSOLUTE) 1.9 x10E3/uL (1.4-7.0); PLATELETS 191 x10E3/uL (150-379); RBC 5.59 x10E6/uL (4.14-5.80); RDW 18.6 % (12.3-15.4); WBC 4.1 x10E3/uL (3.4-10.8)
== END ==
LOC: OD 14:25
PROVIDERS: ATTEND Nurse Practitioner
DX: B20 Human immunodeficiency virus [HIV] disease (principal); Z79.899 Other long term (current) drug therapy; Z11.3 Encounter for screening for infections with a predominantly sexual mode of transmission
CPT/HCPCS: 36415; 80053; 80061; 81001; 85025; 86361; 86592

== ENCOUNTER → 2018-12-01 | Outpatient (CLI) | payer MEDICAID ==
[2018-12-01 16:35] LABS: APPEARANCE,URINE CLEAR; BILIRUBIN,URINE NEGATIVE (NEGATIVE); COLOR,URINE YELLOW; GLUCOSE, URINE NEGATIVE (NEGATIVE); KETONES,URINE NEGATIVE (NEGATIVE); LEUKOCYTE ESTERASE,URINE NEGATIVE (NEGATIVE); NITRITE,URINE NEGATIVE (NEGATIVE); PROTEIN,URINE NEGATIVE (NEGATIVE); URINE SPECIFIC GRAVITY 1.024
[2018-12-01 16:37] LABS: ABSOLUTE EOSINOPHILS # (AUTO) 0.1 10^3/uL (0.0-0.6); ABSOLUTE LYMPHOCYTES (AUTO) 2.2 10^3/uL (0.5-4.7); ABSOLUTE MONOCYTES (AUTO) 0.7 10^3/uL (0.1-1.4); ABSOLUTE NEUT (AUTO) 1.4 10^3/uL (1.7-8.2); BASOPHILS % (AUTO) 0.6 % (0-2); EOSINOPHILS % (AUTO) 1.9 % (0-6); HEMATOCRIT 38.1 % (37.9-51.0); HEMOGLOBIN 12.5 g/dL (13.5-17.0); MEAN CORPUSCULAR HEMOGLOBIN 24.9 pg (27.0-33.4); MEAN CORPUSCULAR HGB CONC 32.8 g/dL (32.0-36.0); MEAN CORPUSCULAR VOLUME 76 fl (80-97); MONOCYTES % (AUTO) 15.3 % (3-13); PLATELET COUNT 208 10^3/uL (150-450); RED BLOOD COUNT 5.02 10^6/uL (4.35-5.55); RED CELL DISTRIBUTION WIDTH 16.4 % (11.5-14.0); SEGMENTED NEUTROPHILS % (AUTO) 31.2 % (42-78); TOTAL CELLS COUNTED % (AUTO) 100 %; WHITE BLOOD COUNT 4.4 10^3/uL (4.0-10.5)
[2018-12-01 17:09] LABS: ALANINE AMINOTRANSFERASE 70 U/L (21-72); ALBUMIN 4.2 g/dL (3.5-5.0); ALKALINE PHOSPHATASE 48 U/L (38-126); ANION GAP 10 (5-19); ASPARTATE AMINO TRANSFERASE 46 U/L (17-59); BILIRUBIN,DIRECT 0.1 mg/dL (0.0-0.4); BILIRUBIN,TOTAL 0.3 mg/dL (0.2-1.3); BLOOD UREA NITROGEN 16 mg/dL (7-20); CALCIUM 9.6 mg/dL (8.4-10.2); CARBON DIOXIDE 27 mmol/L (22-30); CHLORIDE 105 mmol/L (98-107); GLUCOSE 90 mg/dL (75-110); POTASSIUM 4.2 mmol/L (3.6-5.0); TOTAL PROTEIN 7.3 g/dL (6.3-8.2)
[2018-12-01 18:04] LABS: CHLAM PCR NOT DETECTED (NOT DETECT); GON PCR NOT DETECTED (NOT DETECT)
[2018-12-03 12:39] LABS: % CD 4 POS LYMPH 38.3 % (30.8-58.5); ABSOLUTE CD 4 HELPER 881 /uL (359-1519); CD BASOPHILS 0 % (Not Estab.); CD EOSINOPHILS 1 % (Not Estab.); CD MONOCYTES 14 % (Not Estab.); CD NEUTROPHILS 32 % (Not Estab.); EOSINOPHILS (ABSOLUTE) 0.1 x10E3/uL (0.0-0.4); HEMOGLOBIN 12.2 g/dL (13.0-17.7); IMMATURE GRANULOCYTES 0 % (Not Estab.); LYMPHS(ABSOLUTE) 2.3 x10E3/uL (0.7-3.1); MCH 24.4 pg (26.6-33.0); MCHC 31.9 g/dL (31.5-35.7); MCV 77 fL (79-97); MONOCYTES(ABSOLUTE) 0.6 x10E3/uL (0.1-0.9); NEUTROPHILS(ABSOLUTE) 1.4 x10E3/uL (1.4-7.0); PLATELETS 211 x10E3/uL (150-379); RBC 4.99 x10E6/uL (4.14-5.80); RDW 16.9 % (12.3-15.4); WBC 4.4 x10E3/uL (3.4-10.8)
== END ==
LOC: OD 14:53
PROVIDERS: ATTEND Nurse Practitioner
DX: Z11.3 Encounter for screening for infections with a predominantly sexual mode of transmission (principal); B20 Human immunodeficiency virus [HIV] disease
CPT/HCPCS: 36415; 80053; 81001; 85025; 86361; 86592; 87491; 87591

== ENCOUNTER 2019-02-21 17:36 | Emergency (ER) | payer MEDICAID ==
[2019-02-21 17:57] VITALS: BP 132/76
--- NOTE | 2019-02-21 19:14 | ER Document Report ---
ED Medical Screen (RME) - General Chief Complaint: Arrhythmia Stated Complaint: CHEST PAIN Time Seen by Provider: 02/21/19 19:06 Primary Care Provider: MANISH MYERS FNP [Primary Care Provider] - Follow up as needed TRAVEL OUTSIDE OF THE [place] IN LAST 30 DAYS: No - HPI Notes: 02/21/19 19:12 Patient is a 59-year-old male with a history of A. fib (on Plavix), hypertension, congestive heart failure, coronary artery disease with previous stent placement who presents complaining of feeling fluttering in his chest with shortness of breath that began about 6 hours ago. Patient states that the fluttering has resolved at this time and he is feeling well. He does not currently have shortness of breath, but was to the point where he was having significant dyspnea on exertion. Patient is otherwise eating and drinking without difficulty. He is urinating normally. He has been taking his medicines as directed. Denies MESSINA, fever, neck pain, URI, cough, Abd pain, or rash. I have treated and performed a rapid initial assessment of this patient. A comprehensive ED assessment and evaluation of the patient, analysis of test results and completion of medical decision making process will be conducted by additional ED providers. PHYSICAL EXAMINATION: GENERAL: Well-appearing, well-nourished and in no acute distress. A&Ox4. Answers questions appropriately. LUNGS: Breath sounds clear to auscultation bilaterally and equal. No wheezes rales or rhonchi. HEART: Regular rate and rhythm without murmurs, rubs, gallops. Extremities: No cyanosis, clubbing, or edema b/l. Beatriz negative bilaterally. No lower extremity asymmetry. NEUROLOGICAL: Normal speech, normal gait. PSYCH: Normal mood, normal affect. - Related Data Allergies/Adverse Reactions: naproxen [Naproxen] Allergy (Mild, Verified 02/21/19 17:39) Hives Past Medical History - Past Medical History Cardiac Medical History: Reports: Hx Coronary Artery Disease, Hx Heart Attack - 2006, Hx Hypercholesterolemia, Hx Hypertension Renal/ Medical History: Reports: Hx Kidney Stones. Denies: Hx Peritoneal Dialysis GI Medical History: Reports: Hx Gastroesophageal Reflux Disease, Hx Liver Failure - hepatitis C Psychiatric Medical History: Reports: Hx Depression Past Surgical History: Reports: Hx Cardiac Catheterization, Hx Cardiac Surgery - 2 stents placed. Denies: Hx Pacemaker - Immunizations Hx Diphtheria, Pertussis, Tetanus Vaccination: Yes Physical Exam - Vital signs Vitals: Temp Pulse Resp BP Pulse Ox 98.2 F 95 16 132/76 H 98 02/21/19 17:56 02/21/19 17:56 02/21/19 17:56 02/21/19 17:56 02/21/19 17:56 Course - Vital Signs Vital signs: Temp Pulse Resp BP Pulse Ox 98.2 F 95 16 132/76 H 98 02/21/19 17:56 02/21/19 17:56 02/21/19 17:56 02/21/19 17:56 02/21/19 17:56 Doctor's Discharge - Discharge Referrals: MANISH MYERS FNP [Primary Care Provider] - Follow up as needed
--- NOTE | 2019-02-22 00:06 | EKG REPORT ---
SEVERITY:- ABNORMAL ECG - SINUS RHYTHM PROBABLE LEFT ATRIAL ABNORMALITY NONSPECIFIC INTRAVENTRICULAR CONDUCTION DELAY ST DEPRESSION, CONSIDER ISCHEMIA, ANT-LAT LDS VS IVCD/LVH RELATED : Confirmed by: Lissett Brunner 22-Feb-2019 00:05:36
== END 2019-02-21 19:25 | disposition left against medical advice (07) ==
LOC: ER 17:36
DX: R07.9 Chest pain, unspecified (principal); R06.02 Shortness of breath; I48.91 Unspecified atrial fibrillation; I50.9 Heart failure, unspecified; I11.0 Hypertensive heart disease with heart failure; I25.10 Atherosclerotic heart disease of native coronary artery without angina pectoris; Z79.02 Long term (current) use of antithrombotics/antiplatelets; Z87.442 Personal history of urinary calculi
CPT/HCPCS: 93005; 93010; 99281

== ENCOUNTER → 2019-05-11 | Outpatient (CLI) | payer MEDICAID ==
[2019-05-11 10:59] LABS: HEMATOCRIT 38.3 % (37.9-51.0); HEMOGLOBIN 12.3 g/dL (13.5-17.0); MEAN CORPUSCULAR HEMOGLOBIN 24.6 pg (27.0-33.4); MEAN CORPUSCULAR HGB CONC 32.1 g/dL (32.0-36.0); MEAN CORPUSCULAR VOLUME 77 fl (80-97); PLATELET COUNT 138 10^3/uL (150-450); RED BLOOD COUNT 5.01 10^6/uL (4.35-5.55); RED CELL DISTRIBUTION WIDTH 16.8 % (11.5-14.0); WHITE BLOOD COUNT 4.1 10^3/uL (4.0-10.5)
[2019-05-11 11:29] LABS: ALBUMIN 3.9 g/dL (3.5-5.0); ALKALINE PHOSPHATASE 42 U/L (38-126); ANION GAP 9 (5-19); ASPARTATE AMINO TRANSFERASE 43 U/L (17-59); BILIRUBIN,DIRECT 0.2 mg/dL (0.0-0.4); BILIRUBIN,TOTAL 0.4 mg/dL (0.2-1.3); BLOOD UREA NITROGEN 14 mg/dL (7-20); CALCIUM 8.9 mg/dL (8.4-10.2); CARBON DIOXIDE 26 mmol/L (22-30); CHLORIDE 106 mmol/L (98-107); GLUCOSE 84 mg/dL (75-110); POTASSIUM 4.2 mmol/L (3.6-5.0); TOTAL PROTEIN 6.7 g/dL (6.3-8.2)
[2019-05-12 11:37] LABS: % CD 4 POS LYMPH 30.8 % (30.8-58.5); ABSOLUTE CD 4 HELPER 647 /uL (359-1519); CD BASOPHILS 0 % (Not Estab.); CD EOSINOPHILS 2 % (Not Estab.); CD MONOCYTES 13 % (Not Estab.); CD NEUTROPHILS 34 % (Not Estab.); EOSINOPHILS (ABSOLUTE) 0.1 x10E3/uL (0.0-0.4); HEMOGLOBIN 12.1 g/dL (13.0-17.7); IMMATURE GRANULOCYTES 0 % (Not Estab.); LYMPHS(ABSOLUTE) 2.1 x10E3/uL (0.7-3.1); MCHC 30.7 g/dL (31.5-35.7); MCV 78 fL (79-97); PLATELETS 167 x10E3/uL (150-450); RBC 5.07 x10E6/uL (4.14-5.80); RDW 17.3 % (12.3-15.4); WBC 4.1 x10E3/uL (3.4-10.8)
[2019-05-13 10:36] LABS: HIV-1 RNA PCR QUANT <20 copies/mL (.)
== END ==
LOC: OD 09:55
PROVIDERS: ATTEND Nurse Practitioner
DX: Z12.5 Encounter for screening for malignant neoplasm of prostate (principal); Z21 Asymptomatic human immunodeficiency virus [HIV] infection status
CPT/HCPCS: 36415; 80053; 84153; 85027; 86361; 87536

== ENCOUNTER → 2019-08-31 | Outpatient (CLI) | payer MEDICAID ==
[2019-08-31 15:43] LABS: APPEARANCE,URINE CLEAR; BILIRUBIN,URINE NEGATIVE (NEGATIVE); COLOR,URINE STRAW; GLUCOSE, URINE NEGATIVE (NEGATIVE); KETONES,URINE NEGATIVE (NEGATIVE); LEUKOCYTE ESTERASE,URINE NEGATIVE (NEGATIVE); NITRITE,URINE NEGATIVE (NEGATIVE); PROTEIN,URINE NEGATIVE (NEGATIVE); URINE SPECIFIC GRAVITY 1.004; UROBILINOGEN,URINE NEGATIVE mg/dL (<2.0)
[2019-08-31 15:53] LABS: ABSOLUTE EOSINOPHILS # (AUTO) 0.1 10^3/uL (0.0-0.6); ABSOLUTE LYMPHOCYTES (AUTO) 3.5 10^3/uL (0.5-4.7); ABSOLUTE MONOCYTES (AUTO) 0.8 10^3/uL (0.1-1.4); ABSOLUTE NEUT (AUTO) 1.4 10^3/uL (1.7-8.2); BASOPHILS % (AUTO) 0.4 % (0-2); EOSINOPHILS % (AUTO) 1.4 % (0-6); HEMATOCRIT 40.5 % (37.9-51.0); LYMPHOCYTES % (AUTO) 61.4 % (13-45); MEAN CORPUSCULAR HEMOGLOBIN 24.7 pg (27.0-33.4); MEAN CORPUSCULAR HGB CONC 32.2 g/dL (32.0-36.0); MEAN CORPUSCULAR VOLUME 77 fl (80-97); MONOCYTES % (AUTO) 13.3 % (3-13); PLATELET COUNT 139 10^3/uL (150-450); RED BLOOD COUNT 5.28 10^6/uL (4.35-5.55); RED CELL DISTRIBUTION WIDTH 17.6 % (11.5-14.0); SEGMENTED NEUTROPHILS % (AUTO) 23.5 % (42-78); TOTAL CELLS COUNTED % (AUTO) 100 %; WHITE BLOOD COUNT 5.8 10^3/uL (4.0-10.5)
[2019-08-31 16:28] LABS: ALBUMIN 4.1 g/dL (3.5-5.0); ALKALINE PHOSPHATASE 46 U/L (38-126); ANION GAP 7 (5-19); ASPARTATE AMINO TRANSFERASE 22 U/L (17-59); BILIRUBIN,DIRECT 0.1 mg/dL (0.0-0.4); BILIRUBIN,TOTAL 0.6 mg/dL (0.2-1.3); BLOOD UREA NITROGEN 17 mg/dL (7-20); CALCIUM 9.3 mg/dL (8.4-10.2); CARBON DIOXIDE 30 mmol/L (22-30); CHLORIDE 104 mmol/L (98-107); GLUCOSE 75 mg/dL (75-110); POTASSIUM 4.3 mmol/L (3.6-5.0); TOTAL PROTEIN 7.5 g/dL (6.3-8.2)
== END ==
LOC: OD 13:51
PROVIDERS: ATTEND Nurse Practitioner
DX: B20 Human immunodeficiency virus [HIV] disease (principal); B19.20 Unspecified viral hepatitis C without hepatic coma
CPT/HCPCS: 36415; 80053; 81001; 85025; 86361; 87522; 87536

== ENCOUNTER → 2019-10-19 | Outpatient (CLI) | payer MEDICAID | LOC: OD 07:22 | PROVIDERS: ATTEND Nurse Practitioner | DX: B18.2 Chronic viral hepatitis C (principal) | CPT/HCPCS: 36415; 87522 ==

== ENCOUNTER → 2019-12-28 | Outpatient (CLI) | payer MEDICAID ==
[2019-12-28 10:40] LABS: ABSOLUTE EOSINOPHILS # (AUTO) 0.1 10^3/uL (0.0-0.6); ABSOLUTE LYMPHOCYTES (AUTO) 2.8 10^3/uL (0.5-4.7); ABSOLUTE MONOCYTES (AUTO) 0.7 10^3/uL (0.1-1.4); ABSOLUTE NEUT (AUTO) 1.2 10^3/uL (1.7-8.2); BASOPHILS % (AUTO) 0.8 % (0-2); EOSINOPHILS % (AUTO) 2.9 % (0-6); HEMATOCRIT 39.5 % (37.9-51.0); HEMOGLOBIN 12.9 g/dL (13.5-17.0); LYMPHOCYTES % (AUTO) 57.8 % (13-45); MEAN CORPUSCULAR HEMOGLOBIN 24.9 pg (27.0-33.4); MEAN CORPUSCULAR HGB CONC 32.5 g/dL (32.0-36.0); MEAN CORPUSCULAR VOLUME 77 fl (80-97); MONOCYTES % (AUTO) 13.9 % (3-13); PLATELET COUNT 143 10^3/uL (150-450); RED BLOOD COUNT 5.16 10^6/uL (4.35-5.55); RED CELL DISTRIBUTION WIDTH 16.7 % (11.5-14.0); SEGMENTED NEUTROPHILS % (AUTO) 24.6 % (42-78); TOTAL CELLS COUNTED % (AUTO) 100 %; WHITE BLOOD COUNT 4.9 10^3/uL (4.0-10.5)
[2019-12-28 10:44] LABS: APPEARANCE,URINE SLIGHTLY-CLOUDY; BILIRUBIN,URINE NEGATIVE (NEGATIVE); COLOR,URINE YELLOW; GLUCOSE, URINE NEGATIVE (NEGATIVE); KETONES,URINE NEGATIVE (NEGATIVE); LEUKOCYTE ESTERASE,URINE NEGATIVE (NEGATIVE); NITRITE,URINE NEGATIVE (NEGATIVE); PROTEIN,URINE NEGATIVE (NEGATIVE); URINE SPECIFIC GRAVITY 1.006; UROBILINOGEN,URINE NEGATIVE mg/dL (<2.0)
[2019-12-28 11:15] LABS: ALKALINE PHOSPHATASE 40 U/L (38-126); ANION GAP 6 (5-19); ASPARTATE AMINO TRANSFERASE 30 U/L (17-59); BILIRUBIN,DIRECT 0.2 mg/dL (0.0-0.4); BILIRUBIN,TOTAL 0.7 mg/dL (0.2-1.3); BLOOD UREA NITROGEN 18 mg/dL (7-20); CALCIUM 9.3 mg/dL (8.4-10.2); CARBON DIOXIDE 27 mmol/L (22-30); CHLORIDE 105 mmol/L (98-107); POTASSIUM 4.2 mmol/L (3.6-5.0); TOTAL PROTEIN 7.4 g/dL (6.3-8.2)
[2019-12-28 11:19] LABS: GLUCOSE 65 mg/dL (75-110)
[2019-12-29 10:36] LABS: ABSOLUTE CD 4 HELPER 1020 /uL (359-1519); CD BASOPHILS 1 % (Not Estab.); CD EOSINOPHILS 3 % (Not Estab.); CD MONOCYTES 14 % (Not Estab.); CD NEUTROPHILS 25 % (Not Estab.); EOSINOPHILS (ABSOLUTE) 0.1 x10E3/uL (0.0-0.4); HEMOGLOBIN 12.7 g/dL (13.0-17.7); IMMATURE GRANULOCYTES 0 % (Not Estab.); MCHC 32.1 g/dL (31.5-35.7); MCV 77 fL (79-97); PLATELETS 171 x10E3/uL (150-450); RBC 5.17 x10E6/uL (4.14-5.80); RDW 16.9 % (11.6-15.4); WBC 5.2 x10E3/uL (3.4-10.8)
== END ==
LOC: OD 09:46
PROVIDERS: ATTEND Nurse Practitioner
DX: Z21 Asymptomatic human immunodeficiency virus [HIV] infection status (principal)
CPT/HCPCS: 36415; 80053; 81001; 85025; 86361; 86592

== ENCOUNTER → 2020-05-04 | Outpatient (CLI) | payer MEDICAID ==
[2020-05-04 15:27] LABS: ABSOLUTE BASOPHILS # (AUTO) 0.1 10^3/uL (0.0-0.2); ABSOLUTE EOSINOPHILS # (AUTO) 0.1 10^3/uL (0.0-0.6); ABSOLUTE LYMPHOCYTES (AUTO) 2.8 10^3/uL (0.5-4.7); ABSOLUTE MONOCYTES (AUTO) 0.6 10^3/uL (0.1-1.4); ABSOLUTE NEUT (AUTO) 1.3 10^3/uL (1.7-8.2); BASOPHILS % (AUTO) 1.1 % (0-2); EOSINOPHILS % (AUTO) 2.7 % (0-6); HEMOGLOBIN 13.4 g/dL (13.5-17.0); LYMPHOCYTES % (AUTO) 57.5 % (13-45); MEAN CORPUSCULAR HEMOGLOBIN 24.3 pg (27.0-33.4); MEAN CORPUSCULAR HGB CONC 31.8 g/dL (32.0-36.0); MEAN CORPUSCULAR VOLUME 77 fl (80-97); MONOCYTES % (AUTO) 12.6 % (3-13); PLATELET COUNT 155 10^3/uL (150-450); RED BLOOD COUNT 5.49 10^6/uL (4.35-5.55); RED CELL DISTRIBUTION WIDTH 16.9 % (11.5-14.0); SEGMENTED NEUTROPHILS % (AUTO) 26.1 % (42-78); TOTAL CELLS COUNTED % (AUTO) 100 %; WHITE BLOOD COUNT 4.9 10^3/uL (4.0-10.5)
[2020-05-04 15:33] LABS: APPEARANCE,URINE CLEAR; BILIRUBIN,URINE NEGATIVE (NEGATIVE); COLOR,URINE STRAW; GLUCOSE, URINE NEGATIVE (NEGATIVE); KETONES,URINE NEGATIVE (NEGATIVE); LEUKOCYTE ESTERASE,URINE NEGATIVE (NEGATIVE); NITRITE,URINE NEGATIVE (NEGATIVE); PROTEIN,URINE NEGATIVE (NEGATIVE); URINE SPECIFIC GRAVITY 1.002; UROBILINOGEN,URINE NEGATIVE mg/dL (<2.0)
[2020-05-04 15:47] LABS: ALBUMIN 4.8 g/dL (3.5-5.0); ALKALINE PHOSPHATASE 40 U/L (38-126); ANION GAP 5 (5-19); ASPARTATE AMINO TRANSFERASE 23 U/L (17-59); BILIRUBIN,TOTAL 0.7 mg/dL (0.2-1.3); BLOOD UREA NITROGEN 14 mg/dL (7-20); CARBON DIOXIDE 30 mmol/L (22-30); CHLORIDE 104 mmol/L (98-107); GLUCOSE 97 mg/dL (75-110); POTASSIUM 4.7 mmol/L (3.6-5.0); TOTAL PROTEIN 8.1 g/dL (6.3-8.2)
[2020-05-05 13:14] LABS: CHLAM PCR NOT DETECTED (NOT DETECT)
== END ==
LOC: OD 14:03
PROVIDERS: ATTEND Nurse Practitioner
DX: E55.9 Vitamin D deficiency, unspecified (principal); A64 Unspecified sexually transmitted disease; Z21 Asymptomatic human immunodeficiency virus [HIV] infection status; Z79.899 Other long term (current) drug therapy
CPT/HCPCS: 36415; 80053; 81001; 82306; 85025; 86361; 87491; 87522; 87536; 87591